=== PATIENT | male | born 1965 | race Caucasian/White ===

== ENCOUNTER 2018-05-30 10:03 | Observation (INO) | payer OTHER ==
[~2018-05-30] VITALS: Ht 170.2 cm; Wt 90.0 kg
[2018-05-30 11:48] LABS: BASOPHILS # (AUTO) 0.02 x10^3/uL (0-0.1); BASOPHILS % (AUTO) 0 % (0-1); EOSINOPHILS # (AUTO) 0.22 x10^3/uL (0-0.4); EOSINOPHILS % (AUTO) 4 % (1-7); LYMPHOCYTES # (AUTO) 1.08 x10^3/uL (1-3.4); LYMPHOCYTES % (AUTO) 17 % (22-44); MD NO; MEAN CORPUSCULAR HEMOGLOBIN 31.7 pg (27.5-34.5); MEAN CORPUSCULAR HGB CONC 34.2 g/dL (33.2-36.2); MEAN CORPUSCULAR VOLUME 92.8 fL (81-97); MEAN PLATELET VOLUME 7.9 fL (7.4-10.4); MONOCYTES # (AUTO) 0.56 x10^3/uL (0.2-0.8); MONOCYTES % (AUTO) 9 % (2-9); NEUTROPHILS # (AUTO) 4.39 x10^3/uL (1.8-6.8); NEUTROPHILS % (AUTO) 70 % (42-75); PLATELET COUNT 213 x10^3/uL (130-400); RED BLOOD COUNT 5.21 x10^6/uL (4.38-5.82); RED CELL DISTRIBUTION WIDTH 12.7 % (9.4-14.8)
[2018-05-30] MEDS ORDERED: VERAPAMIL 2.5 MG/ML, 2ML ONE (12:03)
[2018-05-30] MEDS ORDERED: FENTANYL PF 100 MCG/2ML ONE (12:03)
[2018-05-30] MEDS ORDERED: HEPARIN 1,000 UNITS/ML, 10ML ONE (12:03)
[2018-05-30] MEDS ORDERED: LIDOCAINE-MPF 1%, 5ML ONE (12:03)
[2018-05-30] MEDS ORDERED: MIDAZOLAM 1 MG/ML, 2ML ONE (12:03)
[2018-05-30 12:08] LABS: ANION GAP 5 mmol/L (5-15); CALCIUM 8.8 mg/dL (8.5-10.1); CHLORIDE 110 mmol/L (98-107)
[2018-05-30 12:12] LABS: CHOL/HDL RATIO 2.7; CHOLESTEROL, TOTAL 131 mg/dL (140-239); CREATININE 1.05 mg/dL (0.7-1.3); HDL CHOL % 37 % (26-37); HDL CHOLESTEROL (DIRECT) 49 mg/dL (40-60); LDL CHOLESTEROL,CALCULATED 65 mg/dL (54-169); LDL/HDL RATIO 1.3 (0.5-3.0); TRIGLYCERIDES 85 mg/dL (50-200); VLDL CHOLESTEROL 17 mg/dL (0-25)
[2018-05-30] MEDS ORDERED: BIVALIRUDIN 250 MG ONE (12:44)
[2018-05-30] MEDS ORDERED: PRASUGREL 10 MG TABLET ONE (12:44)
[2018-05-30] MEDS ORDERED: BIVALIRUDIN 250 MG in SODIUM CHLORIDE 0.9% 50 ML IV SCH (13:07)
[2018-05-30] MEDS ORDERED: ZOLPIDEM 5MG TABLET PO PRN (13:30)
[2018-05-30] MEDS ORDERED: ONDANSETRON 2MG/ML, 2ML IVPush PRN (13:30)
[2018-05-30] MEDS ORDERED: ACETAMINOPHEN 325 MG TABLET PO PRN (13:30)
[2018-05-30] MEDS ORDERED: PLEASE ENTER HEIGHT AND WEIGHT MC SCH (14:00)
[2018-05-30] MEDS ORDERED: PLEASE ENTER ALLERGIES MC SCH (14:00)
[2018-05-30] MEDS: SODIUM CHLORIDE 0.9% 1,000 ML IV SCH ×2 (14:27→21:07)
[2018-05-30 16:49] VITALS: BP 118/80
[2018-05-30 18:53] VITALS: BP 117/77
[2018-05-30] MEDS ORDERED: ATORVASTATIN 40 MG TABLET PO SCH (21:00)
[2018-05-31 01:21] VITALS: BP 124/75
[2018-05-31] MEDS: SODIUM CHLORIDE 0.9% 1,000 ML IV SCH (05:07)
[2018-05-31 05:46] LABS: ANION GAP 5 mmol/L (5-15); CALCIUM 8.7 mg/dL (8.5-10.1); CHLORIDE 107 mmol/L (98-107)
[2018-05-31 05:49] LABS: CREATININE 1.15 mg/dL (0.7-1.3)
[2018-05-31 07:01] VITALS: BP 112/75
[2018-05-31] MEDS ORDERED: ASPI-496 PO (08:52)
[2018-05-31] MEDS ORDERED: PRAS10TA4 PO (08:52)
[2018-05-31] MEDS ORDERED: LISI-167 PO (08:52)
[2018-05-31] MEDS ORDERED: METO-282 PO (08:52)
[2018-05-31] MEDS ORDERED: ATOR40TA78 PO (08:52)
[2018-05-31] MEDS ORDERED: LISINOPRIL 10 MG TABLET PO SCH (09:00)
[2018-05-31] MEDS ORDERED: PRASUGREL 10 MG TABLET PO SCH (09:00)
== END 2018-05-31 10:00 | disposition home or self-care (01) ==
LOC: CACL 10:03 → ORIP 13:13 → 5SO 13:18 → DCLOUNGE 05-31 09:46
PROVIDERS: ADMIT Internal Medicine Cardiovascular Disease; ATTEND Internal Medicine Cardiovascular Disease
DX: I20.0 Unstable angina (principal); I10 Essential (primary) hypertension; D86.0 Sarcoidosis of lung; E78.2 Mixed hyperlipidemia
CPT/HCPCS: 36415; 80048; 80061; 84484; 85014; 85018; 85025; 93005; 93458; 99156; 99157; C1725; C1769; C1874; C1887; C1894; C9600; C9601; G0378; J0583; J1644; J2250; J3010; Q9967